=== PATIENT | female | born 1985 | race Caucasian/White ===

== ENCOUNTER 2024-12-09 07:31 | Day surgery (SDC) | payer OTHER ==
[2024-12-02 12:47] VITALS: BMI 28.6
[2024-12-09 10:16] VITALS: TEMP 98.5
[2024-12-09 10:46] VITALS: BP 117/89; PULSE 72; RESP 17
== END 2024-12-09 10:49 | disposition home or self-care (01) ==
LOC: JASU-ENDO 07:31
PROVIDERS: ATTEND Internal Medicine Gastroenterology
PROC: 0DB78ZX Excision of Stomach, Pylorus, Via Natural or Artificial Opening Endoscopic, Diagnostic (ICD-10-PCS; 2024-12-09)
PROC: 0DB68ZX Excision of Stomach, Via Natural or Artificial Opening Endoscopic, Diagnostic (ICD-10-PCS; 2024-12-09)
PROC: 0DB58ZX Excision of Esophagus, Via Natural or Artificial Opening Endoscopic, Diagnostic (ICD-10-PCS; 2024-12-09)
PROC: 0DB98ZX Excision of Duodenum, Via Natural or Artificial Opening Endoscopic, Diagnostic (ICD-10-PCS; principal; 2024-12-09 09:30)
DX: K21.00 Gastro-esophageal reflux disease with esophagitis, without bleeding (principal); K29.50 Unspecified chronic gastritis without bleeding; K22.70 Barrett's esophagus without dysplasia
CPT/HCPCS: 81025; 88305-TC; 88342-TC